=== PATIENT | male | born 1980 | race Caucasian/White ===

== ENCOUNTER → 2018-01-24 14:32 | Outpatient (CLI) | payer MEDICAID, SELFPAY ==
--- NOTE | 2018-01-24 14:36 | CT_ITS ---
CT head/brain wo con HISTORY: Left-sided head pressure ITS.REASON: PRESSURE IN HEAD ORDERING PHYSICIAN: Val Germain PATIENT AGE: 37 years COMPARISON: None TECHNIQUE: Axial images obtained without contrast. Brain and bone windows reviewed. All CT scans at the facility use one or more dose reduction, viz: automated exposure control, ma/kV adjustment per patient size (including targeted exams where dose is matched to indication, i.e. head), or iterative reconstruction technique. FINDINGS: No midline shift, mass effect, intracranial hemorrhage, hydrocephalus, or extra-axial fluid collection is evident. The calvarium has an unremarkable appearance. No mastoid effusion. No sinus air-fluid levels.. There is mild mucosal thickening of the ethmoid sinuses on the left IMPRESSION: No acute intracranial findings Mild sinus disease
== END ==
PROVIDERS: PCP Nurse Practitioner; Visit Provider Nurse Practitioner
DX: R51 Headache (principal)
CPT/HCPCS: 70450

== ENCOUNTER 2019-07-18 15:38 | Emergency (ER) | payer MEDICAID, SELFPAY ==
[2019-07-18 15:48] VITALS: BP 116/75; PULSE 76; RESP 18; TEMP 36.7; O2SAT 99; BMI 28.1
[2019-07-18 15:58] VITALS: BP 116/75; PULSE 76; RESP 18; TEMP 36.7; O2SAT 99; BMI 28.1
--- NOTE | 2019-07-18 15:59 | HMH.EDUTC ---
[facility] [place] Clinical Impression: URI (upper respiratory infection) Qualifiers: URI type: unspecified URI Qualified Code(s): J06.9 - Acute upper respiratory infection, unspecified Disposition: Home, Self-Care Condition on Discharge: Good Instructions: Cough (Alternative Therapy), Sore Throat, Acute Bronchitis, DI for Cough -- Adult, Preventing the Spread of Coronavirus Discharge Instructions Additional Instructions: *Monitor Temp, Over the counter Motrin or Tylenol as directed/as needed Tylenol every 4 hours and Motrin every 6 hours (as long as your family doctor has told you that you can take it) for fever or pain. and straight to ER if unable to lower temp less than 101.0 after medication given *Warm salt water gargles may help to soothe the throat *Throat Lozenges *Warm fluids *Sleep elevated *Humidifier/Vaporizer Take medication as prescribed Monitor fever at least twice daily for the next several days to see if you have a fever and record Follow up immediately if any worsening of symptoms Your throat swab was sent for culture. Those results are typically sent to your primary care. Be sure to follow up in 2-3 days with your family doctor/primary care physician if no improvement so they can review those result and treat if necessary. If you don?t have a primary care doctor, I recommend you get one but in the mean time, you will have to return to a walk in clinic Follow up IMMEDIATELY for new or worsening symptoms or no Noticeable improvement over the next 48-72 hours. 911 for difficulty breathing or swallowing or chest pain. Prescriptions: Mometasone Furoate [Nasonex] 2 sprays NS DAILY #1 spray.pump Transmission Status: Received by [facility] Azithromycin [Z-Demarco 250mg Tab] 250 mg PO DIRECTED #6 tab Transmission Status: Received by [facility] Referrals: Radha Amos APRN [Primary Care Provider] - Time of Disposition: 16:41 Medical Decision Making - Feliciano Inquiry Pt receiving controlled substance: No Feliciano was queried for this patient: No Vital Signs: 07/18/19 15:48 07/18/19 15:58 Temperature 98.1 F 98.1 F Temperature Source Oral Oral Pulse Rate [Radial] 76 76 Respiratory Rate 18 18 Blood Pressure [Right Arm] 116/75 116/75 Blood Pressure Mean [Right Arm] 88 88 Blood Pressure Source [Right Arm] Automatic Cuff Automatic Cuff Blood Pressure Position [Right Arm] Sitting Sitting 02 Sat by Pulse Oximetry 99 99 Oxygen Delivery Method Room Air Room Air - Lab Data Lab results reviewed: Yes: I reviewed the patient's lab results. Lab Results 07/18/19 16:34: Influenza Type A Ag Negative, Influenza Type B Ag Negative 07/18/19 16:34: Strep Scn Rapid Clinic Negative Orders (Tests/Meds): ORDERS Category Date Time Status Chest XR 2 view (NOT portable) [XR chest 2V] Stat Exams 07/18/19 16:00 Taken Strep Screen Confirmation Stat Micro 07/18/19 16:34 Received - Radiology Data #1 Image(s): Chest Image Reviewed: Yes I reviewed the patient's radiology image w/the ED provider Preliminary Findings: Normal/NAD - Reevaluation(s) Time: 16:35 Reevaluation #1: Discussed with patient about covid testing and patient declined at this time, State that he will monitor temp for the next couple of days and if he gets a temp he will return for testing Patient advised that if he starts to run a fever or worsening of cough he needs to follow up immediately and he verbalized understanding [facility] [place] - General Stated complaint: sore throat,weakness Time Seen by Provider: 07/18/19 15:59 Mode of Arrival: Ambulatory Source of Information: Patient Limitations: No Limitations Description of Symptoms (Recalled from Triage Doc. by RN): Complaint of a sore throat x 1 week that he states he brushed off on the fact that he snores. Denies chest pain but states his chest hurt while taking a deep breath and it felt more muscular. - History of Present Illness Provider Complaint: Patient states t
--- NOTE | 2019-07-18 16:00 | XR_ITS ---
PROCEDURE: XR CHEST 2V CLINICAL HISTORY: cough Chest pain with cough COMPARISON: CXR CHEST(2 VIEWS-NOT PORTABLE) from 01/13/2014 CXR1 CHEST-PORTABLE from 03/11/2014 FINDINGS: The cardiomediastinal silhouette and pulmonary vascularity are within normal limits. The lungs are clear without infiltrates, suspicious nodules, or pleural effusions. No acute bony abnormalities. IMPRESSION: No acute findings. Dictated by: Emiliano Ash MD 07/18/2019 16:46 Electronically signed by Emiliano Ash MD in [place] 07/18/2019 16:46
[2019-07-18 16:36] LABS: UTC Influenza A Antigen Negative (Negative); UTC Strep Screen (Rapid) Negative (Negative)
[2019-07-18 16:37] LABS: UTC Influenza B Antigen Negative (Negative)
[2019-07-18 18:08] VITALS: BP 116/78; PULSE 79; RESP 19; TEMP 36.6; O2SAT 100
== END 2019-07-18 16:49 | disposition home or self-care (01) ==
LOC: ER 15:44 → UTC 15:48
PROVIDERS: Emergency Provider Nurse Practitioner
DX: J06.9 Acute upper respiratory infection, unspecified (principal); F17.210 Nicotine dependence, cigarettes, uncomplicated
CPT/HCPCS: 71046; 87804; 87880; 99202

== ENCOUNTER 2020-05-10 13:16 | Emergency (ER) | payer OTHER, SELFPAY ==
[2020-05-10 13:30] VITALS: BP 128/85; PULSE 77; RESP 14; O2SAT 99; BMI 28.1
--- NOTE | 2020-05-10 14:09 | HMH.EDUTC ---
[facility] [place] Disposition Clinical Impression: Tendinopathy of left shoulder Left shoulder pain Qualifiers: Chronicity: acute Qualified Code(s): M25.512 - Pain in left shoulder Disposition: Home, Self-Care Condition on Discharge: Good Instructions: Shoulder Tendinopathy, DI for Shoulder Tendinopathy Additional Instructions: Continue the antiinflammatory medications that you are already on. Follow up with your primary care physician. GO TO THE ER FOR ANY WORSENING SYMPTOMS OR CONCERNS To Whom it May Concern: It would be reasonable to place Mr. Huitron on light duty at his job for the next week. Repetitive use of his left shoulder will make his symptoms worse. Hernandez Gasca APRN Referrals: Mikey Erazo MD [Primary Care Provider] - Zayda Martinez MD [Physician] - Forms: Work/School Release Time of Disposition: 14:23 Medical Decision Making - Medical Records Medical records reviewed: No: I reviewed the patient's medical records. - Feliciano Inquiry Pt receiving controlled substance: No Vital Signs: 05/10/20 13:30 05/10/20 14:28 Temperature 98.9 F Pulse Rate 77 Pulse Rate [Right Brachial] 77 Respiratory Rate 14 14 Blood Pressure 128/85 Blood Pressure [Right Arm] 128/85 Blood Pressure Mean [Right Arm] 99 Blood Pressure Source [Right Arm] Automatic Cuff Blood Pressure Position [Right Arm] Sitting 02 Sat by Pulse Oximetry 99 Oxygen Delivery Method Room Air [facility] [place] HPI - General Stated complaint: left shoulder pain, unknown origin Time Seen by Provider: 05/10/20 13:50 Mode of Arrival: Ambulatory Source of Information: Patient Limitations: No Limitations Description of Symptoms (Recalled from Triage Doc. by RN): PATIENT C/O PAIN AND DECREASED ROM TO LEFT SHOULDER. UNKNOWN INJURY, HOWEVER STATES HE SHOVELED SNOW ALL WEEKEND HEENT Symptoms (Recalled from RN notes): No Resp Symptoms (Recalled from RN notes): No Skin Symptoms (Recalled from RN notes): No MS Symptoms (Recalled from RN notes): Yes Functional Status (Recalled from RN notes): WNL - History of Present Illness Provider Complaint: He states that he is having left shoulder pain with movement of the shoulder since yesterday. He thinks that he has irritated his shoulder with the repetitive movements. . - Related Data Previous Rx's Medication Instructions Recorded Azithromycin [Z-Demarco 250mg Tab] 250 mg PO DIRECTED #6 tab 07/18/19 Mometasone Furoate [Nasonex] 2 sprays NS DAILY #1 spray.pump 07/18/19 Allergies Allergy/AdvReac Type Severity Reaction Status Date / Time No Known Allergies Allergy Verified 07/18/19 16:04 - Worker's Comp Is this a Worker's Comp case?: No [facility] History - Hepatitis A Screen Drug use history?: No High risk sexual behaviors?: No History of sexually transmitted infection?: No Currently employed?: No Childcare worker?: No Do you have indoor plumbing?: Yes Do you have electricity?: Yes Attestation statement:: This patient has been screened for Hepatitis A risk factors. I have reviewed the patient's past medical history: Yes Medical History: Reports:: Hepatitis (Reports dx Hep C 9yrs ago) Other Surgeries: Yes: No Previous Surgery - Social History Smoking Status: Current every day smoker Tobacco Type: cigarettes # Packs/Day (cigarettes): 1 Alcohol Intake: never Occupational Status: other Household Members: family ROS Obtained: Yes All systems reviewed & no additional complaints - Constitutional Constitutional: Denies chills, Denies fever(s) - Musculoskeletal Musculoskeletal: Reports as per HPI - Integumentary/Breasts Skin/Breast: Denies redness, Denies rash, Denies wounds Physical Exam - General General appearance: alert, in no apparent distress - Head Head exam: atraumatic, normocephalic, normal inspection - Eye Eye exam: Present: normal appearance, PERRL, EOMI - ENT ENT exam: Present: normal exam, normal oropharynx, mucous membranes moist, TM's n
[2020-05-10 14:28] VITALS: BP 128/85; PULSE 77; RESP 14; TEMP 37.2; O2SAT 99
== END 2020-05-10 14:30 | disposition home or self-care (01) ==
PROVIDERS: Emergency Provider Nurse Practitioner Family; PCP Emergency Medicine
DX: M67.912 Unspecified disorder of synovium and tendon, left shoulder (principal); B18.2 Chronic viral hepatitis C; F17.210 Nicotine dependence, cigarettes, uncomplicated
CPT/HCPCS: 99202; G0463

== ENCOUNTER 2020-07-16 14:35 | Emergency (ER) | payer OTHER, SELFPAY ==
[2020-07-16 14:43] VITALS: BP 143/86; PULSE 70; RESP 14; TEMP 37.1; O2SAT 100; BMI 29.9
--- NOTE | 2020-07-16 15:01 | HMH.EDUTC ---
[facility] [place] Clinical Impression: Viral syndrome Disposition: Home, Self-Care Condition on Discharge: Good Instructions: DI for Viral Syndrome Additional Instructions: Drink plenty of fluids. Take tylenol for pain or fever. Return if you begin to have difficulty breathing. Follow up with your regular doctor. GO TO THE ER FOR ANY WORSENING SYMPTOMS Referrals: Mikey Erazo MD [Primary Care Provider] - Forms: Work/School Release Time of Disposition: 15:08 Medical Decision Making - Medical Records Medical records reviewed: No: I reviewed the patient's medical records. - Feliciano Inquiry Pt receiving controlled substance: No Vital Signs: 07/16/20 14:43 Temperature 98.7 F Temperature Source Oral Pulse Rate [Left] 70 Respiratory Rate 14 Blood Pressure [Right Arm] 143/86 H Blood Pressure Mean [Right Arm] 105 Blood Pressure Source [Right Arm] Automatic Cuff Blood Pressure Position [Right Arm] Sitting 02 Sat by Pulse Oximetry 100 Oxygen Delivery Method Room Air Orders (Tests/Meds): ORDERS Category Date Time Status Covid-19 Nasal PCR ([facility]) Routine Lab 07/16/20 14:40 Received [facility] [place]PI - General Stated complaint: covid test Time Seen by Provider: 07/16/20 15:01 Mode of Arrival: Ambulatory Source of Information: Patient Limitations: No Limitations Description of Symptoms (Recalled from Triage Doc. by RN): pt c/o aches and fatigue. is positive for covid. HEENT Symptoms (Recalled from RN notes): No Resp Symptoms (Recalled from RN notes): No Skin Symptoms (Recalled from RN notes): No MS Symptoms (Recalled from RN notes): No Functional Status (Recalled from RN notes): na - History of Present Illness Provider Complaint: He states that for the past 2 days he has had worse fatigue than usual. His is sick right now and she may have covid-19. He denies any shortness of breath and congestion. He denies any fever/chills/body aches. - Related Data Previous Rx's Medication Instructions Recorded Azithromycin [Z-Demarco 250mg Tab] 250 mg PO DIRECTED #6 tab 07/18/19 Mometasone Furoate [Nasonex] 2 sprays NS DAILY #1 spray.pump 07/18/19 Allergies Allergy/AdvReac Type Severity Reaction Status Date / Time No Known Allergies Allergy Verified 07/16/20 14:46 - Worker's Comp Is this a Worker's Comp case?: No [facility] History - Hepatitis A Screen Drug use history?: No High risk sexual behaviors?: No History of sexually transmitted infection?: No Currently employed?: No Childcare worker?: No Do you have indoor plumbing?: Yes Do you have electricity?: Yes Attestation statement:: This patient has been screened for Hepatitis A risk factors. I have reviewed the patient's past medical history: Yes Medical History: Reports:: Hepatitis (Reports dx Hep C 9yrs ago) Other Surgeries: Yes: No Previous Surgery - Social History Smoking Status: Current every day smoker Tobacco Type: cigarettes # Packs/Day (cigarettes): 1 Alcohol Intake: never Occupational Status: other Household Members: family ROS Obtained: Yes All systems reviewed & no additional complaints - Constitutional Constitutional: Reports system reviewed and no additional complaints, except as docu - Eyes Eyes: Reports system reviewed and no additional complaints, except as docu - ENT Ears, Nose, Mouth, and Throat: Reports system reviewed and no additional complaints, except as docu - Cardiovascular Cardiovascular: Reports system reviewed and no additional complaints, except as docu - Respiratory Respiratory: Reports system reviewed and no additional complaints, except as docu Physical Exam - General General appearance: alert, in no apparent distress - Head Head exam: atraumatic, normocephalic, normal inspection - Eye Eye exam: Present: normal appearance, PERRL, EOMI - ENT ENT exam: Present: normal exam, normal oropharynx, mucous membranes moist, TM's normal bilaterally, normal external e
[2020-07-16 15:34] VITALS: BP 135/85; PULSE 70; RESP 14; TEMP 37.1
== END 2020-07-16 15:34 | disposition home or self-care (01) ==
PROVIDERS: Emergency Provider Nurse Practitioner Family; PCP Emergency Medicine
DX: Z20.822 Contact with and (suspected) exposure to COVID-19 (principal); B34.9 Viral infection, unspecified; B18.2 Chronic viral hepatitis C; F17.210 Nicotine dependence, cigarettes, uncomplicated
CPT/HCPCS: 99202; G0463; U0003

== ENCOUNTER 2020-08-26 14:40 | Emergency (ER) | payer OTHER, SELFPAY ==
[2020-08-26 14:44] VITALS: BP 132/80; PULSE 78; RESP 17; TEMP 36.8; O2SAT 98; BMI 29.9
--- NOTE | 2020-08-26 14:52 | HMH.EDUTC ---
[facility] [place] Disposition Clinical Impression: Viral syndrome Acute bronchitis Qualifiers: Bronchitis organism: unspecified organism Qualified Code(s): J20.9 - Acute bronchitis, unspecified Disposition: Home, Self-Care Condition on Discharge: Good Instructions: DI for Acute Bronchitis, Preventing the Spread of Coronavirus Discharge Instructions Additional Instructions: Drink plenty of fluids. Take tylenol or ibuprofen for pain or fever. Take the medications as directed. Follow up with your regular doctor. GO TO THE ER FOR ANY WORSENING SYMPTOMS Prescriptions: Brompheniramine/Pseudoephed/Dm [Bromfed Dm Cough Syrup] 5 ml PO Q6HP PRN #240 syrup PRN Reason: Cough Transmission Status: Received by [facility] Azithromycin [Z-Demarco 250mg Tab*] 250 mg PO UD DOSE PK #6 tab Transmission Status: Received by [facility] Referrals: Mikey Erazo MD [Primary Care Provider] - Time of Disposition: 15:13 Medical Decision Making - Medical Records Medical records reviewed: No: I reviewed the patient's medical records. - Feliciano Inquiry Pt receiving controlled substance: No Vital Signs: 08/26/20 14:44 08/26/20 14:59 Temperature 98.3 F 98.3 F Temperature Source Oral Pulse Rate 78 Pulse Rate [Left] 78 Respiratory Rate 17 17 Blood Pressure 132/80 Blood Pressure [Right Arm] 132/80 Blood Pressure Mean [Right Arm] 97 02 Sat by Pulse Oximetry 98 - Lab Data Lab Results 08/26/20 14:59: Strep Scn Rapid Clinic Negative Orders (Tests/Meds): ORDERS Category Date Time Status Strep Screen Confirmation Stat Micro 08/26/20 14:59 Received [facility] [place] HPI - General Stated complaint: fatigue,cough Time Seen by Provider: 08/26/20 14:52 - History of Present Illness Provider Complaint: He states that he has had a cough and he has felt bad for the past 3 days. He has had chilling also, but no documented fever. - Related Data Previous Rx's Medication Instructions Recorded Azithromycin [Z-Demarco 250mg Tab] 250 mg PO DIRECTED #6 tab 07/18/19 Mometasone Furoate [Nasonex] 2 sprays NS DAILY #1 spray.pump 07/18/19 Azithromycin [Z-Demarco 250mg Tab*] 250 mg PO UD DOSE PK #6 tab 08/26/20 Brompheniramine/Pseudoephed/Dm 5 ml PO Q6HP PRN #240 syrup 08/26/20 [Bromfed Dm Cough Syrup] Allergies Allergy/AdvReac Type Severity Reaction Status Date / Time No Known Allergies Allergy Verified 08/26/20 14:58 [facility] History - Hepatitis A Screen Attestation statement:: This patient has been screened for Hepatitis A risk factors. I have reviewed the patient's past medical history: Yes Medical History: Reports:: Hepatitis (Reports dx Hep C 9yrs ago) Other Surgeries: Yes: No Previous Surgery - Social History Smoking Status: Current every day smoker Tobacco Type: cigarettes # Packs/Day (cigarettes): 1 Alcohol Intake: never Occupational Status: other Household Members: family ROS Obtained: Yes All systems reviewed & no additional complaints - Constitutional Constitutional: Reports system reviewed and no additional complaints, except as docu - Eyes Eyes: Reports system reviewed and no additional complaints, except as docu - ENT Ears, Nose, Mouth, and Throat: Reports system reviewed and no additional complaints, except as docu - Cardiovascular Cardiovascular: Reports system reviewed and no additional complaints, except as docu - Respiratory Respiratory: Reports system reviewed and no additional complaints, except as docu - Gastrointestinal Gastrointestingal: Reports: system reviewed and no additional complaints, except as docu Physical Exam - General General appearance: alert, in no apparent distress - Head Head exam: atraumatic, normocephalic, normal inspection - Eye Eye exam: Present: normal appearance, PERRL, EOMI - ENT ENT exam: Present: normal exam, normal oropharynx, mucous membranes moist, TM's normal bilaterally, normal external ear exam - Neck Neck exam:
[2020-08-26 14:59] VITALS: BP 132/80; PULSE 78; RESP 17; TEMP 36.8; O2SAT 98
[2020-08-26 15:10] LABS: UTC Strep Screen (Rapid) Negative (Negative)
--- NOTE | 2020-08-26 20:22 | PC.NURSE ---
Pt contacted and informed of his negative Covid test by this nurse.
== END 2020-08-26 15:18 | disposition home or self-care (01) ==
PROVIDERS: Emergency Provider Nurse Practitioner Family; PCP Emergency Medicine
DX: J20.9 Acute bronchitis, unspecified (principal); B34.9 Viral infection, unspecified; Z20.822 Contact with and (suspected) exposure to COVID-19
CPT/HCPCS: 87880; 99202; G0463; U0003

== ENCOUNTER 2020-11-10 10:45 | Emergency (ER) | payer OTHER, SELFPAY ==
[2020-11-10 13:02] VITALS: BP 0/0; PULSE 0; RESP 0; TEMP -17.7; TEMP 0
== END 2020-11-10 13:03 | disposition left against medical advice (07) ==
LOC: UTC 10:47
PROVIDERS: Emergency Provider Nurse Practitioner; PCP Emergency Medicine
DX: Z53.21 Procedure and treatment not carried out due to patient leaving prior to being seen by health care provider (principal)

== ENCOUNTER 2021-01-03 12:50 | Emergency (ER) | payer OTHER, SELFPAY ==
[2021-01-03 13:32] VITALS: BP 151/89; PULSE 65; RESP 16; TEMP 36.7; O2SAT 99; BMI 28.7
--- NOTE | 2021-01-03 13:38 | HMH.EDUTC ---
[facility] [place] Clinical Impression: Dental abscess, Jaw pain Disposition: Home, Self-Care Condition on Discharge: Good Instructions: Tooth Abscess, DI for Dental Pain Additional Instructions: Make sure you follow up with a dentist. Take the medications as directed. GO TO THE ER FOR WORSENING SYMPTOMS. INFECTION IN YOUR MOUTH THIS CLOSE TO YOUR BRAIN CAN BE VERY DANGEROUS. Prescriptions: Ibuprofen [Ibuprofen 800mg Tablet] 800 mg PO Q8HP PRN #30 tab PRN Reason: Moderate Pain Transmission Status: Received by [facility] Amoxicillin/Potassium Clav [Augmentin 875-125 Tablet] 1 tab PO Q12H 10 Days #20 tab Transmission Status: Received by [facility] Referrals: Mikey Erazo MD [Primary Care Provider] - Time of Disposition: 14:01 Medical Decision Making - Medical Records Medical records reviewed: No: I reviewed the patient's medical records. - Feliciano Inquiry Pt receiving controlled substance: No Vital Signs: 01/03/21 13:32 01/03/21 14:05 Temperature 98.1 F 98.3 F Temperature Source Oral Oral Pulse Rate 60 Pulse Rate [Right] 65 Respiratory Rate 16 16 Blood Pressure 152/74 H Blood Pressure [Right Arm] 151/89 H Blood Pressure Mean [Right Arm] 109 Blood Pressure Source Automatic Cuff Blood Pressure Source [Right Arm] Automatic Cuff Blood Pressure Position Sitting Blood Pressure Position [Right Arm] Sitting 02 Sat by Pulse Oximetry 99 Oxygen Delivery Method Room Air Room Air [facility] [place] HPI - General Stated complaint: oral infection Time Seen by Provider: 01/03/21 13:38 - History of Present Illness Provider Complaint: He states that he has had 2 teeth that are absessed. One is in his top right jaw and one is in his bottom right jaw. He denies any fever or chills. His dentist retired and he has had trouble finding another one that takes his insurance. - Related Data Previous Rx's Medication Instructions Recorded Azithromycin [Z-Demarco 250mg Tab] 250 mg PO DIRECTED #6 tab 07/18/19 Mometasone Furoate [Nasonex] 2 sprays NS DAILY #1 spray.pump 07/18/19 Azithromycin [Z-Demarco 250mg Tab*] 250 mg PO UD DOSE PK #6 tab 08/26/20 Brompheniramine/Pseudoephed/Dm 5 ml PO Q6HP PRN #240 syrup 08/26/20 [Bromfed Dm Cough Syrup] Amoxicillin/Potassium Clav 1 tab PO Q12H 10 Days #20 tab 01/03/21 [Augmentin 875-125 Tablet] Ibuprofen [Ibuprofen 800mg 800 mg PO Q8HP PRN #30 tab 01/03/21 Tablet] Allergies Allergy/AdvReac Type Severity Reaction Status Date / Time No Known Allergies Allergy Verified 08/26/20 14:58 [facility] History - Hepatitis A Screen Attestation statement:: This patient has been screened for Hepatitis A risk factors. I have reviewed the patient's past medical history: Yes Medical History: Reports:: Hepatitis (Reports dx Hep C 9yrs ago) Other Surgeries: Yes: No Previous Surgery - Social History Smoking Status: Never smoker Tobacco Type: cigarettes # Packs/Day (cigarettes): 1 Alcohol Intake: never Occupational Status: other Household Members: family ROS Obtained: Yes All systems reviewed & no additional complaints - Constitutional Constitutional: Denies chills, Denies fever(s) - Eyes Eyes: Denies eye discharge - ENT Ears, Nose, Mouth, and Throat: Reports as per HPI, Denies dizziness, Denies otalgia, Denies sore throat - Cardiovascular Cardiovascular: Denies chest pain - Respiratory Respiratory: Denies chest congestion, Denies cough, Denies dyspnea, Denies stridor, Denies wheezing - Gastrointestinal Gastrointestingal: Denies: abdominal pain, diarrhea, nausea, vomiting - Musculoskeletal Musculoskeletal: Denies joint pain, Denies back pain, Denies neck pain - Integumentary/Breasts Skin/Breast: Denies rash Physical Exam - General General appearance: alert, in no apparent distress - Head Head exam: atraumatic, normocephalic, normal inspection - Eye Eye exam: Present: normal appearance, PERRL, EOMI - ENT ENT ex
[2021-01-03 14:05] VITALS: BP 152/74; PULSE 60; RESP 16; TEMP 36.8; O2SAT 98
== END 2021-01-03 14:06 | disposition home or self-care (01) ==
PROVIDERS: Emergency Provider Nurse Practitioner Family; PCP Emergency Medicine
DX: K04.7 Periapical abscess without sinus (principal); F17.210 Nicotine dependence, cigarettes, uncomplicated
CPT/HCPCS: 99202; G0463

== ENCOUNTER 2021-01-13 17:25 | Emergency (ER) | payer OTHER, SELFPAY ==
[2021-01-13 19:28] VITALS: BP 0/0; PULSE 0; RESP 0; TEMP -17.7; TEMP 0; O2SAT 0
== END 2021-01-13 19:29 | disposition left against medical advice (07) ==
LOC: UTC 17:29
PROVIDERS: Emergency Provider Nurse Practitioner; PCP Emergency Medicine
DX: Z53.21 Procedure and treatment not carried out due to patient leaving prior to being seen by health care provider (principal)

== ENCOUNTER 2021-01-16 10:03 | Emergency (ER) | payer OTHER, SELFPAY ==
[2021-01-16 10:10] VITALS: BP 133/88; PULSE 68; RESP 20; TEMP 37.2; O2SAT 98; BMI 28.7
--- NOTE | 2021-01-16 10:57 | HMH.EDUTC ---
[facility] [place] Disposition Clinical Impression: Dental abscess Disposition: Home, Self-Care Condition on Discharge: Good Instructions: Tooth Abscess, Clindamycin Additional Instructions: Take antibiotics as prescribed Follow up with Dentist as scheduled Use Dental balls as advised in the [facility] Return if needed Over the counter Motrin and/or Tylenol as directed on package for pain and fever Prescriptions: clindamycin HCL [Clindamycin HCl] 300 mg PO TID 7 Days #21 cap Transmission Status: Pending to [facility] Referrals: Mikey Erazo MD [Primary Care Provider] - As needed Time of Disposition: 11:03 Medical Decision Making - Feliciano Inquiry Pt receiving controlled substance: No Feliciano was queried for this patient: No Vital Signs: 01/16/21 10:10 Temperature 98.9 F Temperature Source Oral Pulse Rate [Right Brachial] 68 Respiratory Rate 20 Blood Pressure [Right Arm] 133/88 Blood Pressure Mean [Right Arm] 103 Blood Pressure Source [Right Arm] Automatic Cuff Blood Pressure Position [Right Arm] Sitting 02 Sat by Pulse Oximetry 98 Oxygen Delivery Method Room Air [facility] HPI - General Stated complaint: dental pain Time Seen by Provider: 01/16/21 10:57 Mode of Arrival: Ambulatory Source of Information: Patient Limitations: No Limitations Description of Symptoms (Recalled from Triage Doc. by RN): PATIENT C/O LEFT SIDE TOOTH INFECTION FOR A COUPLE OF WEEKS. WAS RECENTLY ON ANTIBIOTICS BUT FEELS LIKE THE INFECTION IS STILL THERE. HAS A DENTIST APPOINTMENT ON SUNDAY HEENT Symptoms (Recalled from RN notes): Yes Resp Symptoms (Recalled from RN notes): No Skin Symptoms (Recalled from RN notes): No MS Symptoms (Recalled from RN notes): No Functional Status (Recalled from RN notes): WNL - History of Present Illness Provider Complaint: Patient states he has several bad and infected teeth on the left side of his mough States that he was seen in the [facility] a little over 2 weeks ago and was given antibiotics States that he took them and it got better but then this morning he woke up and had swelling again in his left jaw area like the infection had returned so he came in to get it checked States that he has appointment on Sunday with Dentist - Related Data Home Medications Medication Instructions Recorded Confirmed Esomeprazole Magnesium [Nexium] 40 mg PO DAILY 01/16/21 01/16/21 Previous Rx's Medication Instructions Recorded clindamycin HCL [Clindamycin HCl] 300 mg PO TID 7 Days #21 cap 01/16/21 Allergies Allergy/AdvReac Type Severity Reaction Status Date / Time No Known Allergies Allergy Verified 08/26/20 14:58 - Worker's Comp Is this a Worker's Comp case?: No [facility] History - Hepatitis A Screen Drug use history?: No High risk sexual behaviors?: No History of sexually transmitted infection?: No Currently employed?: No Childcare worker?: No Do you have indoor plumbing?: Yes Do you have electricity?: Yes Attestation statement:: This patient has been screened for Hepatitis A risk factors. I have reviewed the patient's past medical history: Yes Medical History: Reports:: Hepatitis (Reports dx Hep C 9yrs ago) Other Surgeries: Yes: No Previous Surgery - Social History Smoking Status: Never smoker Tobacco Type: cigarettes # Packs/Day (cigarettes): 1 Alcohol Intake: never Occupational Status: other Household Members: family ROS Obtained: Yes All systems reviewed & no additional complaints, Yes Systems reviewed as appropriate & no additional complaints - Constitutional Constitutional: Reports system reviewed and no additional complaints, except as docu, Denies body ache, Denies chills, Denies fever(s) - ENT Ears, Nose, Mouth, and Throat: Reports system reviewed and no additional complaints, except as docu, Reports dental pain - Cardiovascular Cardiovascular: Reports system reviewed and no additional complaints, except as docu - Respiratory Respiratory: Reports system reviewed and no add
[2021-01-16 11:10] VITALS: BP 133/88; PULSE 68; RESP 20; TEMP 37.2; O2SAT 98
== END 2021-01-16 11:14 | disposition home or self-care (01) ==
PROVIDERS: Emergency Provider Nurse Practitioner; PCP Emergency Medicine
DX: K04.7 Periapical abscess without sinus (principal)
CPT/HCPCS: 99202; G0463

== ENCOUNTER 2021-01-22 13:14 | Emergency (ER) | payer OTHER, SELFPAY ==
[2021-01-22 14:12] VITALS: BP 157/99; PULSE 73; RESP 16; TEMP 36.8; O2SAT 96; BMI 28.7
[2021-01-22 14:36] VITALS: BP 157/99; PULSE 73; RESP 18; TEMP 36.8
--- NOTE | 2021-01-22 14:42 | HMH.EDUTC ---
[facility] [place] Disposition Clinical Impression: Dental abscess, Pain, dental, Jaw pain Disposition: Home, Self-Care Condition on Discharge: Good Instructions: Tooth Abscess, DI for Tooth Abscess Additional Instructions: Make sure you get in with a dentist danny. Keep the appointment that you have scheduled now at least. Take the medications as directed. Take the probiotics that we prescribed to try to protect you from having more GI issues from too many antibiotics. If your insurance won't pay for them, then ask the pharmacist to recommend one that you could buy over the counter. Eat yogurt twice per day for the next few weeks also. Drink plenty of fluids. Take tylenol or ibuprofne for pain or fever. Follow up with your regular doctor. GO TO THE ER FOR ANY WORSENING SYMPTOMS Prescriptions: clindamycin HCL [Cleocin HCl] 300 mg PO Q8H 10 Days #30 cap Transmission Status: Received by [facility] Lactobacillus 3/Fos/Pantethine [Probiotic & Acidophilus Cap] 1 each PO BID 30 Days #60 cap Transmission Status: Received by [facility] Referrals: Mikey Erazo MD [Primary Care Provider] - Time of Disposition: 14:52 Medical Decision Making - Medical Records Medical records reviewed: No: I reviewed the patient's medical records. - Feliciano Inquiry Pt receiving controlled substance: No Vital Signs: 01/22/21 14:12 01/22/21 14:36 Temperature 98.2 F 98.2 F Temperature Source Oral Pulse Rate 73 Pulse Rate [Left] 73 Respiratory Rate 16 18 Blood Pressure 157/99 H Blood Pressure [Right Arm] 157/99 H Blood Pressure Mean [Right Arm] 118 02 Sat by Pulse Oximetry 96 Orders (Tests/Meds): ED MEDICATIONS Discontinued Medications Generic Name Dose Route Start Last Admin Trade Name Freq PRN Reason Stop Dose Admin Benzocaine/Butamben/Tetracaine HCl 10 gm 01/22/21 14:49 01/22/21 15:04 Tetracaine/Benzocaine/Butamben 56 Gm [place] TP 02/21/21 14:48 10 gm NEEDED PRN Administration dental pain Ceftriaxone Sodium 1 gm 01/22/21 14:38 01/22/21 14:46 Ceftriaxone 1gm Vial IM 01/22/21 14:39 1 gm ONCE ONE Administration Lidocaine HCl 0 ml 01/22/21 14:38 01/22/21 14:46 Lidocaine 1% 5ml Pf Vial IM 01/22/21 14:39 2.5 ml ONCE ONE Administration Lidocaine HCl 15 ml 01/22/21 14:49 01/22/21 15:03 Lidocaine 2% Viscous Andreina 15ml Udc PO 01/22/21 14:50 15 ml ONCE ONE Administration [facility] HPI - General Stated complaint: oral infection Time Seen by Provider: 01/22/21 14:42 Mode of Arrival: Ambulatory Source of Information: Patient Limitations: No Limitations Description of Symptoms (Recalled from Triage Doc. by RN): pt was here two weeks ago and tx for an abcess tooth in the L lower jaw with amoxicillin. a few days later he came back and was tx with clindamycin which he finished yesterday. pt has tried to get in with numerous dentists and is having problems finding one that will take his insurance. he now has an appointment HEENT Symptoms (Recalled from RN notes): Yes (abcessed tooth in the lower L jaw) Resp Symptoms (Recalled from RN notes): No Skin Symptoms (Recalled from RN notes): No MS Symptoms (Recalled from RN notes): No Functional Status (Recalled from RN notes): na - History of Present Illness Provider Complaint: He is back with dental pain. He has finished 2 rounds of antibiotics. He has not been successful at being seen by a dentist because he is having trouble finding someone that will take his insurance. He went to an appointment earlier this week, but then they discovered they did not take his insurance. He states that his dental pain and swelling was better while he was on the clindamycin, but as soon as it was completed he started having the pain and swelling again. He denies any fever or chills. - Related Data Home Medications Medication Instructions Recorded Confirmed Esomeprazole Magnesium [Nexium] 40 mg PO DAILY 01/16/21
== END 2021-01-22 15:07 | disposition home or self-care (01) ==
PROVIDERS: Emergency Provider Nurse Practitioner Family; PCP Emergency Medicine
DX: K04.7 Periapical abscess without sinus (principal); B18.2 Chronic viral hepatitis C
CPT/HCPCS: 96372; 99202; G0463

== ENCOUNTER → 2021-03-21 15:31 | Outpatient (CLI) | payer OTHER, SELFPAY | PROVIDERS: Visit Provider Nurse Practitioner | DX: U07.1 COVID-19 (principal) | CPT/HCPCS: C9803; U0003; U0005 ==

== ENCOUNTER → 2021-04-07 08:05 | Outpatient (CLI) | payer OTHER, SELFPAY | PROVIDERS: Visit Provider Nurse Practitioner | DX: Z20.822 Contact with and (suspected) exposure to COVID-19 (principal) | CPT/HCPCS: C9803; U0003; U0005 ==

== ENCOUNTER 2021-06-27 12:35 | Emergency (ER) | payer OTHER, SELFPAY ==
--- NOTE | 2021-06-27 12:38 | XR_ITS ---
FINAL REPORT CLINICAL HISTORY: FALL FINDINGS: 3 views of the right foot were obtained. There is no acute fracture or dislocation. The joint spaces are intact. The soft tissues are unremarkable. IMPRESSION: No acute process. Reviewed, Interpreted and Dictated by Colin Thomas MD Transcribed by Sawyer Borges Authenticated by Colin Thomas MD on 06/27/2021 02:41:36 PM [facility]
[2021-06-27 13:40] VITALS: BP 141/83; PULSE 64; RESP 18; TEMP 37.1; O2SAT 98; BMI 28.7
--- NOTE | 2021-06-27 14:20 | HMH.EDUTC ---
[facility] [place] Clinical Impression: Right foot pain Contusion of right heel Qualifiers: Encounter type: initial encounter Qualified Code(s): S90.31XA - Contusion of right foot, initial encounter Disposition: Home, Self-Care Condition on Discharge: Good Additional Instructions: Rest the extremity, apply ice for 15 minutes as tolerated three or four times per day, Wear the maria wrap for compression, Elevate the extremity as tolerated while you are resting. Take ibuprofen for pain. I sent in a prescription to your pharmacy. Follow up with Dr. Mata (orthopedics). Sometimes there can be fractures that don't show up well on the first set of x-rays. So, you should follow up if you continue to have symptoms. I put in a referral but you need to call his office and schedule an appointment. Follow up with your regular doctor. GO TO THE ER FOR ANY WORSENING SYMPTOMS Prescriptions: Ibuprofen [Ibuprofen 800mg Tablet] 800 mg PO Q8HP PRN #30 tab PRN Reason: Moderate Pain Transmission Status: Received by [facility] Referrals: Mikey Erazo MD [Primary Care Provider] - Nehemias Mata MD [Staff Physician] - Forms: Work/School Release Time of Disposition: 15:18 Medical Decision Making - Medical Records Medical records reviewed: No: I reviewed the patient's medical records. - Feliciano Inquiry Pt receiving controlled substance: No Vital Signs: 06/27/21 13:40 06/27/21 14:52 Temperature 98.7 F 98.7 F Temperature Source Oral Pulse Rate 64 Pulse Rate [Right Brachial] 64 Respiratory Rate 18 18 Blood Pressure 141/83 H Blood Pressure [Right Arm] 141/83 H Blood Pressure Mean [Right Arm] 102 Blood Pressure Source [Right Arm] Automatic Cuff Blood Pressure Position [Right Arm] Sitting 02 Sat by Pulse Oximetry 98 Oxygen Delivery Method Room Air - Radiology Data #1 Image(s): Foot/Toes Image Reviewed: Yes I reviewed the patient's radiology image, Yes I have reviewed radiologist's interpretation Preliminary Findings: Normal/NAD, No Fracture Seen FINAL REPORT CLINICAL HISTORY: FALL FINDINGS: 3 views of the right foot were obtained. There is no acute fracture or dislocation. The joint spaces are intact. The soft tissues are unremarkable. IMPRESSION: No acute process. Reviewed, Interpreted and Dictated by Colin Thomas MD Transcribed by Sawyer Borges Authenticated by Colin Thomas MD on 06/27/2021 02:41:36 PM [facility] HPI - General Stated complaint: AO 06/27 fall rt foot pain Time Seen by Provider: 06/27/21 13:40 Mode of Arrival: Ambulatory Source of Information: Patient Limitations: No Limitations Description of Symptoms (Recalled from Triage Doc. by RN): PATIENT STATES HE FELL OFF OF LADDER TODAY AND INJURED RIGHT HEEL HEENT Symptoms (Recalled from RN notes): No Resp Symptoms (Recalled from RN notes): No Skin Symptoms (Recalled from RN notes): No MS Symptoms (Recalled from RN notes): Yes Functional Status (Recalled from RN notes): WNL - History of Present Illness Provider Complaint: He states that earlier today he was stepping down off a ladder when he fell and came down on his right heel. He is having right heel pain. The pain is worse with walking and bearing weight. - Related Data Home Medications Medication Instructions Recorded Confirmed Esomeprazole Magnesium [Nexium] 40 mg PO DAILY 01/16/21 06/27/21 Previous Rx's Medication Instructions Recorded Ibuprofen [Ibuprofen 800mg 800 mg PO Q8HP PRN #30 tab 06/27/21 Tablet] Allergies Allergy/AdvReac Type Severity Reaction Status Date / Time No Known Allergies Allergy Verified 08/26/20 14:58 - Worker's Comp Is this a Worker's Comp case?: No [facility] History - Hepatitis A Screen Drug use history?: No High risk sexual behaviors?: No History of sexually transmitted infection?: No Currently employed?: No Childcare worker?: No Do you have indoor plumbing?: Yes
[2021-06-27 14:52] VITALS: BP 141/83; PULSE 64; RESP 18; TEMP 37.1; O2SAT 98
== END 2021-06-27 15:25 | disposition home or self-care (01) ==
PROVIDERS: Emergency Provider Nurse Practitioner Family; PCP Emergency Medicine
DX: S90.31XA Contusion of right foot, initial encounter (principal); W11.XXXA Fall on and from ladder, initial encounter; Y92.89 Other specified places as the place of occurrence of the external cause
CPT/HCPCS: 73630; 99212; G0463

== ENCOUNTER 2022-07-26 14:26 | Emergency (ER) | payer OTHER, SELFPAY ==
[2022-07-26 14:26] VITALS: BP 129/74; PULSE 77; RESP 17; TEMP 36.9; O2SAT 99; BMI 26.2
--- NOTE | 2022-07-26 15:04 | HMH.EDGENADL ---
Discharge Plan Disposition Patient Disposition: Home, Self-Care Chief Complaint: Wound/Laceration Prescriptions Prescriptions: No Action esomeprazole magnesium 40 MG capsule,delayed release(DR/EC) 40 mg PO DAILY Referrals Follow up/Referrals: Mikey Erazo MD [Primary Care Provider] - See instructions Activity Restrictions/Add. Instructions Additional Instructions/Restrictions: Return for bleeding vomiting headache numbness or tingling arms or legs or any other concerns within the next 8 hours Otherwise follow-up with your primary care physician or return to emergency room in 1 week for staple removal Clinical Impressions Clinical Impression: Complex laceration of scalp Instructions Patient Instructions: DI for Laceration Repair Discharge ED Provider: Moy Barrios General Adult HPI General Chief complaint: Wound/Laceration Stated complaint: AO [id number] gash on top of head Time Seen by Provider: 07/26/22 14:30 Mode of Arrival: Ambulatory Source of Information: Patient Limitations: No Limitations Description of Symptoms (Recalled from ER Triage Doc. by RN): 41 M presents from his job site after having a ladder fall down onto his head. He was carrying the ladder and it came down hitting the top of his head causing lacerations in 2 different spots on the right portion of his scalp. Denies LOC, loss of vision, or blurry vision. After it happened he was able to finish cleaning up the site and drive here. Approximately 1 hour [employer]. History of Present Illness HPI narrative: 41-year-old male was at the job site when he had a letter fall down his head he says it was right above his head he was carrying a ladder and then hit down and cut his scalp in 2 areas. Denies loss of consciousness loss of vision numbness weakness or tingling arms or legs. Denies nausea or vomiting. No other injuries. No neck pain. No blood thinners. Related Data Home Medications Medication Instructions Recorded Confirmed esomeprazole magnesium 40 mg 40 mg PO DAILY Acid reflux 01/16/21 07/26/22 capsule,delayed release Allergies Allergy/AdvReac Type Severity Reaction Status Date / Time No Known Allergies Allergy Verified 08/26/20 14:58 [facility] Disclaimer: The information contained in this section may have been updated after the patient was seen, as this information can be updated by other users. Social History Smoking Status: Never smoker second hand exposure: No alcohol intake: never current occupational status: other Travel in the last 8 weeks: None household members: family current occupational exposures/hazards: No ROS Obtained: Yes All systems reviewed & no additional complaints except as documented Constitutional Constitutional: Denies fatigue and Denies headache(s) Eyes Eyes: Denies dry eyes ENT Ears, Nose, Mouth, and Throat: Denies headache(s) Cardiovascular Cardiovascular: Denies diaphoresis and Denies dyspnea Respiratory Respiratory: Denies dyspnea Gastrointestinal Gastrointestingal: Denies constipation Genitourinary Male Genitourinary: Denies flank pain Musculoskeletal Musculoskeletal: Denies joint stiffness Integumentary/Breasts Skin/Breast: Denies redness and Denies rash Neurologic Neurologic: Denies headache(s) Endocrine Endocrine: Denies fatigue Hematologic/Lymphatic Henatologic/Lymphatic: Denies easy bleeding Allergic/Immunologic Allergic/Immunologic: Denies urticaria Physical Exam General General appearance: alert and in no apparent distress Head Head exam: other (4 cm laceration scalp +2 cm laceration scalp not deep clean wounds) Eye Eye exam: Present PERRL and EOMI ENT ENT exam: Present normal exam and normal oropharynx Neck Neck exam: Present normal inspection Chest Chest inspection: Present symmetric chest wall rise Respiratory Respiratory exam: Present normal lung sounds bilaterally; Absent respiratory distress Cardiovascular Cardiovascular exam: Presen
[2022-07-26 15:11] VITALS: BP 132/75; PULSE 67; RESP 17; TEMP 36.8; O2SAT 99
== END 2022-07-26 15:17 | disposition home or self-care (01) ==
PROVIDERS: Emergency Provider Emergency Medicine; PCP Emergency Medicine
DX: S01.01XA Laceration without foreign body of scalp, initial encounter (principal); W20.8XXA Other cause of strike by thrown, projected or falling object, initial encounter; Y99.0 Civilian activity done for income or pay; Z23 Encounter for immunization
CPT/HCPCS: 12004; 90715; 96372; 99283

== ENCOUNTER 2022-08-04 06:33 | Emergency (ER) | payer OTHER, SELFPAY ==
[2022-08-04 06:36] VITALS: BP 130/65; PULSE 71; RESP 17; TEMP 36.7; O2SAT 98
--- NOTE | 2022-08-04 07:12 | PC.NURSE ---
Back Facer is speaking with BLESSING.
[2022-08-04 07:48] VITALS: BP 127/72; PULSE 88; RESP 16; TEMP 36.6; O2SAT 100
--- NOTE | 2022-08-04 07:49 | PC.NURSE ---
8 tara removed utilizing staple remover/hemostats. Pt tolerated well. Wound edges approximated, slight superficial bleeding noted d/t (1) staple embedded. Neosporin applied.
== END 2022-08-04 07:50 | disposition home or self-care (01) ==
PROVIDERS: Emergency Provider Emergency Medicine; PCP Emergency Medicine
DX: Z48.02 Encounter for removal of sutures (principal)
CPT/HCPCS: 99281

== ENCOUNTER 2022-08-27 09:14 | Emergency (ER) | payer OTHER, SELFPAY ==
[2022-08-27 09:20] VITALS: BP 110/98; PULSE 60; RESP 18; TEMP 36.5; O2SAT 98; BMI 23.6
[2022-08-27 09:29] VITALS: BP 110/98; PULSE 60; RESP 18; TEMP 36.5; O2SAT 98
[2022-08-27 09:31] LABS: Apearance,Urine Clear (Clear); Color,Urine Yellow (Yellow); Specific Gravity, Urine 1.025 (1.005-1.030)
[2022-08-27 09:32] LABS: Bilirubin,Urine Negative (Negative); Blood, Urine Negative (Negative); Glucose,Urine (UA) Negative (Negative); Ketones,Urine Negative (Negative); Protein,Urine Negative (Negative); UTC Leukocyte Esterase,Urine Negative (Negative); UTC Nitrate,Urine Negative (Negative); Urobilinogen,Urine 0.2 EU/dl (0.2)
--- NOTE | 2022-08-27 09:34 | EXP.UTC ---
Discharge Plan Disposition Patient Disposition: Home, Self-Care Condition: Good Prescriptions Prescriptions: New doxycycline monohydrate 100 mg capsule 100 mg PO BID 14 Days Qty: 28 0RF No Action esomeprazole magnesium 40 MG capsule,delayed release(DR/EC) 40 mg PO DAILY Referrals Follow up/Referrals: Mikey Erazo MD [Primary Care Provider] - See instructions Activity Restrictions/Add. Instructions Additional Instructions/Restrictions: practice safe sex no sexual contact until both are finished with antibiotics and are not having symptoms follow up for lab results Clinical Impressions Clinical Impression: STI (sexually transmitted infection) Instructions Patient Instructions: Facts About Sexually Transmitted Infections, How to Detect and Treat STDs Discharge ED Provider: Elsa ([facility])Yandel [facility] [place] HPI General Stated complaint: Trouble urinating Mode of Arrival: Ambulatory Source of Information: Patient Limitations: No Limitations Time Seen by Provider: 08/27/22 09:34 Description of Symptoms (Recalled from Triage Doc. by RN): PATIENT C/O BURNING WITH URINATION X 2 DAYS HEENT Symptoms (Recalled from RN notes): No Resp Symptoms (Recalled from RN notes): No Skin Symptoms (Recalled from RN notes): No MS Symptoms (Recalled from RN notes): No Functional Status (Recalled from RN notes): WNL History of Present Illness Provider Complaint: 41 yr old male presents for burning with urination for 2 days. pt states his partner has just been dx with sti he is not sure if it was chlamydia or ureaplasma but was given doxycycline Related Data Home Medications Medication Instructions Recorded Confirmed esomeprazole magnesium 40 mg 40 mg PO DAILY Acid reflux 01/16/21 08/27/22 capsule,delayed release Previous Rx's Medication Instructions Recorded doxycycline monohydrate 100 mg 100 mg PO BID 14 days #28 caps 08/27/22 capsule Allergies Allergy/AdvReac Type Severity Reaction Status Date / Time No Known Allergies Allergy Verified 08/26/20 14:58 Worker's Comp Is this a Worker's Comp case?: No [facility] Disclaimer: The information contained in this section may have been updated after the patient was seen, as this information can be updated by other users. 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) Smoking Status: Never smoker second hand exposure: No alcohol intake: never current occupational status: other Travel in the last 8 weeks: None household members: family current occupational exposures/hazards: No ROS Obtained: Yes All systems reviewed & no additional complaints except as documented Constitutional Constitutional: Reports system reviewed and no additional complaints, except as documented and Reports as per HPI Eyes Eyes: Reports system reviewed and no additional complaints, except as documented ENT Ears, Nose, Mouth, and Throat: Reports system reviewed and no additional complaints, except as documented Cardiovascular Cardiovascular: Reports system reviewed and no additional complaints, except as documented Respiratory Respiratory: Reports system reviewed and no additional complaints, except as documented Genitourinary Male Genitourinary: Reports system reviewed and no additional complaints, except as documented, Reports as per HPI, Reports difficulty urinating, Reports urinary urgency and Reports other (burning) Neurologic Neurologic: Reports system reviewed and no additional complaints, except as documented Endocrine Endocrine: Reports system reviewed and no additional complaints, except as documented Hematologic/Lymphatic Henatologic/Lymphatic: Reports system reviewed and no additional complaints, except as documented Physical Exam General General appearance: alert and in no apparent distress Head Head exam: atraumatic and normocephalic Eye Eye exam: Present normal appearance and PERRL ENT ENT exam: Present normal exam, nor
[2022-08-30 01:12] LABS: Neisseria gonorrhoeae, NAA Negative (Negative)
== END 2022-08-27 09:35 | disposition home or self-care (01) ==
PROVIDERS: Emergency Provider Nurse Practitioner Family; PCP Emergency Medicine
DX: A64 Unspecified sexually transmitted disease (principal); R30.0 Dysuria
CPT/HCPCS: 81003; 87086; 87491; 87591; 99212; 99214; G0463

== ENCOUNTER 2022-09-14 08:53 | Emergency (ER) | payer OTHER, SELFPAY ==
[2022-09-14 09:05] VITALS: BP 123/74; PULSE 63; RESP 18; TEMP 37.1; O2SAT 99; BMI 26.2
[2022-09-14 09:12] LABS: Apearance,Urine Clear (Clear); Bilirubin,Urine Negative (Negative); Blood, Urine Negative (Negative); Color,Urine Dark Yellow (Yellow); Glucose,Urine (UA) Negative (Negative); Ketones,Urine Negative (Negative); Protein,Urine Negative (Negative); UTC Leukocyte Esterase,Urine Negative (Negative); UTC Nitrate,Urine Negative (Negative); Urobilinogen,Urine 0.2 EU/dl (0.2)
--- NOTE | 2022-09-14 09:28 | EXP.UTC ---
Discharge Plan Disposition Patient Disposition: Home, Self-Care Condition: Good Prescriptions Prescriptions: No Action esomeprazole magnesium 40 MG capsule,delayed release(DR/EC) 40 mg PO DAILYP PRN (Reason: Acid Reflux) Referrals Follow up/Referrals: Mikey Erazo MD [Primary Care Provider] - See instructions Matt Pichardo MD [Staff Physician] - See instructions Vlad Hess MD [Referring] - See instructions Activity Restrictions/Add. Instructions Additional Instructions/Restrictions: Make sure to check for your results in the next 3-5 days Follow up with your Family Doctor for further testing and evaluation Follow up with Urology if symptoms persist for further testing and evaluation Straight to ER if any life threatening symptoms Clinical Impressions Clinical Impression: Urinary symptom or sign Instructions Patient Instructions: Chlamydia, DI for Gonorrhea Discharge ED Provider: Radha Amos [facility] [place] HPI General Stated complaint: Trouble urinating Mode of Arrival: Ambulatory Source of Information: Patient Limitations: No Limitations Time Seen by Provider: 09/14/22 09:28 Description of Symptoms (Recalled from Triage Doc. by RN): PATIENT C/O DISCOMFORT WHEN URINATING. HE WAS SEEN EARLIER THIS MONTH FOR THE SAME THING BUT HAS NOT GOTTEN BETTER HEENT Symptoms (Recalled from RN notes): No Resp Symptoms (Recalled from RN notes): No Skin Symptoms (Recalled from RN notes): No MS Symptoms (Recalled from RN notes): No Functional Status (Recalled from RN notes): WNL History of Present Illness Provider Complaint: Patient states that he was seen earlier this month due to STI exposure and was tested and started on Doxy States that his symptoms did improve and his lady finished all her medication and he noticed after they had sex again the warming feeling came back in his private area and he was worried he may have got infected again so he came back in Related Data Home Medications Medication Instructions Recorded Confirmed esomeprazole magnesium 40 mg 40 mg PO DAILYP PRN Acid Reflux 01/16/21 09/14/22 capsule,delayed release Allergies Allergy/AdvReac Type Severity Reaction Status Date / Time No Known Allergies Allergy Verified 08/26/20 14:58 Worker's Comp Is this a Worker's Comp case?: No [facility] Disclaimer: The information contained in this section may have been updated after the patient was seen, as this information can be updated by other users. Social History , [employer]) Smoking Status: Never smoker second hand exposure: No alcohol intake: never current occupational status: other Travel in the last 8 weeks: None household members: family current occupational exposures/hazards: No ROS Obtained: Yes All systems reviewed & no additional complaints except as documented and Yes Systems reviewed as appropriate & no additional complaints except as documented Constitutional Constitutional: Reports system reviewed and no additional complaints, except as documented, Denies body ache, Denies chills and Denies fever(s) ENT Ears, Nose, Mouth, and Throat: Reports system reviewed and no additional complaints, except as documented and Reports as per HPI Cardiovascular Cardiovascular: Reports system reviewed and no additional complaints, except as documented and Reports as per HPI Respiratory Respiratory: Reports system reviewed and no additional complaints, except as documented and Reports as per HPI Gastrointestinal Gastrointestingal: Reports system reviewed and no additional complaints, except as documented and as per HPI; Denies abdominal pain, diarrhea, nausea or vomiting Genitourinary Male Genitourinary: Reports system reviewed and no additional complaints, except as documented, Reports as per HPI, Denies penile ulceration, Denies flank pain, Denies genital lesions, Denies genital pain, Denies hematospermia, Denies penile discharge,
[2022-09-14 09:34] VITALS: BP 123/74; PULSE 63; RESP 18; TEMP 37.1; O2SAT 99
[2022-09-15 22:40] LABS: Neisseria gonorrhoeae, NAA Negative (Negative)
== END 2022-09-14 09:36 | disposition home or self-care (01) ==
PROVIDERS: Emergency Provider Nurse Practitioner; PCP Emergency Medicine
DX: R39.9 Unspecified symptoms and signs involving the genitourinary system (principal)
CPT/HCPCS: 81003; 87086; 87491; 87591; 99212; 99213; G0463

== ENCOUNTER 2023-01-10 08:29 | Emergency (ER) | payer OTHER, SELFPAY ==
[2023-01-10 08:30] VITALS: BP 122/78; PULSE 68; RESP 18; TEMP 36.9; O2SAT 97; BMI 25.0
--- NOTE | 2023-01-10 08:58 | EXP.UTC ---
Discharge Plan Disposition Patient Disposition: Home, Self-Care Condition: Fair Prescriptions Prescriptions: No Action esomeprazole magnesium 40 MG capsule,delayed release(DR/EC) 40 mg PO DAILYP PRN (Reason: Acid Reflux) fluconazole 150 mg tablet 150 mg PO ONCE levofloxacin 500 mg tablet 500 mg PO DAILY sertraline 50 mg tablet 50 mg PO DAILY Referrals Follow up/Referrals: Mikey Erazo MD [Primary Care Provider] - See instructions Tariq Bowles MD [Staff Physician] - See instructions (call to schedule followup) Activity Restrictions/Add. Instructions Additional Instructions/Restrictions: Please follow-up with your primary care provider. Please return to the emergency department if you develop any new or worsening symptoms or become concerned for your health. Recommend continuing the Levaquin as prescribed by urology. Recommend following up with cardiology for consideration of Holter monitor placement. Clinical Impressions Clinical Impression: Bilateral lower abdominal pain, Dizziness Stand Alone Forms Stand Alone Forms: Work/School Release Instructions Patient Instructions: DI for Ambulatory Cardiac Monitoring, DI for Acute Abdominal Pain Discharge ED Provider: Ivan Gifford [facility] General Chief complaint: Abdominal Pain Stated complaint: LOWER ABDOMINAL PAIN, DIZZINESS Time Seen by Provider: 01/10/23 08:58 Related Data Home Medications Medication Instructions Recorded Confirmed esomeprazole magnesium 40 mg 40 mg PO DAILYP PRN Acid Reflux 01/16/21 01/10/23 capsule,delayed release fluconazole 150 mg tablet 150 mg PO ONCE 01/10/23 01/10/23 levofloxacin 500 mg tablet 500 mg PO DAILY 01/10/23 01/10/23 sertraline 50 mg tablet 50 mg PO DAILY 01/10/23 01/10/23 Allergies Allergy/AdvReac Type Severity Reaction Status Date / Time No Known Allergies Allergy Verified 01/10/23 09:01 [facility] Disclaimer: The information contained in this section may have been updated after the patient was seen, as this information can be updated by other users. Social History Smoking Status: Current every day smoker tobacco type: cigarettes packs per day: 1 second hand exposure: No alcohol intake: never current occupational status: other Travel in the last 8 weeks: None household members: family current occupational exposures/hazards: No ROS Obtained: Yes All systems reviewed & no additional complaints except as documented Constitutional Constitutional: Denies chills, Denies fever(s) and Reports poor appetite ENT Ears, Nose, Mouth, and Throat: Denies dizziness and Denies sore throat Cardiovascular Cardiovascular: Denies dyspnea Respiratory Respiratory: Denies chest congestion, Denies cough and Denies dyspnea Musculoskeletal Musculoskeletal: Denies arthralgias Integumentary/Breasts Skin/Breast: Denies rash Neurologic Neurologic: Denies dizziness Physical Exam General General appearance: alert and in no apparent distress Head Head exam: atraumatic and normocephalic Eye Eye exam: Present normal appearance, PERRL and EOMI ENT ENT exam: Present normal exam, normal oropharynx, mucous membranes moist, TM's normal bilaterally and normal external ear exam Neck Neck exam: Present normal inspection, full ROM and trachea midline; Absent tenderness, meningismus or lymphadenopathy Chest Chest inspection: Present normal inspection and symmetric chest wall rise; Absent tenderness, rash or abscess Respiratory Respiratory exam: Present normal lung sounds bilaterally; Absent respiratory distress, wheezes or stridor Cardiovascular Cardiovascular exam: Present regular rate and normal rhythm; Absent irregular rhythm, systolic murmur, diastolic murmur or JVD Abdominal Exam Abdominal exam: Present soft and normal bowel sounds; Absent distention, tenderness, guarding, rebound, rigidity, psoas sign, obturator sign, heel tap sig
[2023-01-10 09:06] LABS: Apearance,Urine Clear (Clear); Bilirubin,Urine Negative (Negative); Blood, Urine Negative (Negative); Color,Urine Yellow (Yellow); Glucose,Urine (UA) Negative (Negative); Ketones,Urine Negative (Negative); Protein,Urine Negative (Negative)
[2023-01-10 09:07] LABS: UTC Leukocyte Esterase,Urine Negative (Negative); UTC Nitrate,Urine Negative (Negative); Urobilinogen,Urine 0.2 EU/dl (0.2)
[2023-01-10 09:30] VITALS: BP 109/73; PULSE 65; RESP 20; O2SAT 100
[2023-01-10 09:37] VITALS: BP 127/76; PULSE 60; RESP 16; TEMP 36.6; O2SAT 100; BMI 25.0
--- NOTE | 2023-01-10 09:37 | PC.NURSE ---
Dr. Gifford at for pt eval
--- NOTE | 2023-01-10 09:55 | CT_ITS ---
FINAL REPORT TECHNIQUE: Postcontrast axial images through the abdomen and pelvis were performed. This study was performed with techniques to keep radiation doses as low as reasonably achievable, (ALARA). Individualized dose reduction techniques using automated exposure control or adjustment of mA and/or kV according to the patient's size were employed. CLINICAL HISTORY: reported chronic prostatitis, new RLQ/LLQ pain FINDINGS: Abdomen: The lung bases are clear. The liver is normal in size and attenuation. The spleen is unremarkable. The adrenals are normal. The pancreas is unremarkable. The kidneys enhance appropriately. The aorta is normal in caliber. No free fluid or adenopathy is identified. No findings for mechanical bowel obstruction are identified. Pelvis: The appendix is normal. The urinary bladder is unremarkable. No free fluid, free air, abscess or adenopathy is identified. IMPRESSION: No acute inflammatory process. Reviewed, Interpreted and Dictated by Rl Uribe III, MD Transcribed by Spring Miranda Authenticated and [facility]
[2023-01-10 10:00] VITALS: BP 116/81; PULSE 60; RESP 20; O2SAT 100
--- NOTE | 2023-01-10 10:04 | ECG_ITS ---
APPROVED REPORT Exam: Resting ECG HR:60 bpm ECG Measurements Heart Rate 60 AXES QRSd 102 QRS 81 QT 403 T 76 QTc 403 Conclusion SUPRAVENTRICULAR RHYTHM ABNORMAL RHYTHM ECG UNCONFIRMED REPORT Electronically signed by : Hector Valle MD 01/11/2023 21:28:21
--- NOTE | 2023-01-10 10:12 | PC.NURSE ---
pt taken to ct on 1st floor due to the one in ER being used
--- NOTE | 2023-01-10 10:15 | PC.NURSE ---
pt gave a urine sample at [facility], per Dasha @ [facility] this specimen was sent to lab after their dipstick analysis was completed. Let Elena in Lab know that would like this urine sample run in lab for UA w micro and possible culture.
[2023-01-10 10:17] LABS: Basophils % 0.3 % (0.1-2.0); Eosinophils # 0.2 K/mm3 (0.0-0.4); Eosinophils % 2.5 % (0.1-12.0); Hematocrit 43.4 % (42.0-52.0); Lymphocytes # 1.6 K/mm3 (0.7-4.5); Lymphocytes % 23.4 % (10-50); Mean Corpuscular HGB Conc 36.8 g/dL (31.8-35.4); Mean Corpuscular Hemoglobin 33.7 pg (27.0-31.2); Mean Corpuscular Volume 91.7 fl (80-94); Mean Platelet Volume 8.3 fl (7.4-10.4); Monocytes # 0.3 K/mm3 (0.1-1.0); Monocytes % 4.8 % (1.7-9.3); Neutrophils # 4.8 K/mm3 (1.8-7.8); Neutrophils % 68.9 % (37.0-80.0); Platelet Count 182 K/mm3 (142-424); Red Blood Count 4.74 M/mm3 (4.60-6.20); Red Cell Distribution Width 12.8 % (11.5-17.5)
[2023-01-10 10:18] LABS: Microscopic, Urine URINE MICROSCOPIC (MICROSCOPIC)
[2023-01-10 10:22] LABS: Appearance,Urine CLEAR (Clear); Bilirubin,Urine Negative (Negative); Blood, Urine Negative (Negative); Color,Urine YELLOW (Yellow); Glucose,Urine (UA) Negative (Negative); Ketones,Urine Negative (Negative); Leukocyte Esterase,Urine Negative (Negative); Nitrate,Urine Negative (Negative); Protein,Urine Negative (Negative); Urobilinogen,Urine 0.2 EU/dl (0.2)
[2023-01-10 10:26] LABS: Chloride 104 mmol/L (98-107); Potassium 4.3 mmoL/L (3.5-5.1); Sodium 139 mmol/L (136-145)
[2023-01-10 10:28] LABS: Blood Urea Nitrogen 20 mg/dl (9-20); Creatinine Clearance Estimated 156 mL/min (50-200); Estimated Glomerular Filt Rate 107 ml/min (>60); GFR (African American) 129 ML/MIN (>60)
[2023-01-10 10:29] LABS: Alanine Aminotransferase 21 U/L (12-78); Albumin Level 4.9 g/dl (3.5-5.0); Albumin/Globulin Ratio 1.6 (1.1-1.8); Alkaline Phosphatase 81 U/L (38-126); Anion Gap 8.3 mEq/L (5-15); Aspartate Amino Transferase 26 U/L (17-59); Bilirubin,Total 0.8 mg/dl (0.2-1.3); Calcium 8.7 mg/dl (8.4-10.2); Carbon Dioxide 31 mmol/L (22.0-30.0); Glucose 102 mg/dl (74-100); Total Protein,Serum 7.9 g/dl (6.3-8.2)
[2023-01-10 10:43] LABS: Troponin I < 0.01 ng/ml (0.00-0.034)
[2023-01-10 11:00] LABS: Thyroid Stimulating Hormone 1.31 uIU/mL (0.465-4.68)
[2023-01-10 13:12] VITALS: BP 130/87; PULSE 59; RESP 18; TEMP 36.6; O2SAT 98
--- NOTE | 2023-01-18 06:06 | HMH.EDGENADL ---
Discharge Plan Disposition Patient Disposition: Home, Self-Care Condition: Fair Prescriptions Prescriptions: No Action esomeprazole magnesium 40 MG capsule,delayed release(DR/EC) 40 mg PO DAILYP PRN (Reason: Acid Reflux) fluconazole 150 mg tablet 150 mg PO ONCE levofloxacin 500 mg tablet 500 mg PO DAILY sertraline 50 mg tablet 50 mg PO DAILY Referrals Follow up/Referrals: Mikey Erazo MD [Primary Care Provider] - See instructions Tariq Bowles MD [Staff Physician] - See instructions (call to schedule followup) Activity Restrictions/Add. Instructions Additional Instructions/Restrictions: Please follow-up with your primary care provider. Please return to the emergency department if you develop any new or worsening symptoms or become concerned for your health. Recommend continuing the Levaquin as prescribed by urology. Recommend following up with cardiology for consideration of Holter monitor placement. Clinical Impressions Clinical Impression: Bilateral lower abdominal pain, Dizziness Stand Alone Forms Stand Alone Forms: Work/School Release Instructions Patient Instructions: DI for Ambulatory Cardiac Monitoring, DI for Acute Abdominal Pain Discharge ED Provider: Ivan Gifford Adult HPI General Chief complaint: Abdominal Pain Stated complaint: LOWER ABDOMINAL PAIN, DIZZINESS Time Seen by Provider: 01/10/23 08:58 Mode of Arrival: Ambulatory Source of Information: Patient Limitations: No Limitations Description of Symptoms (Recalled from ER Triage Doc. by RN): 42 yo M transferred from [facility] for further evaluation. pt reports abdominal pain ongoing for 3 days. yesterday pt reports he began to ahve lightheadedness when standing. when laying down pt reports that he has a pulsitile headache , but only when laying down. History of Present Illness HPI narrative: 42-year-old male with a variety of complaints presents from urgent care for further evaluation. He reports that he is being evaluated by urology for prostatic issues and has been diagnosed with chronic prostatitis. Patient also reports intermittent palpitations and dizziness. Also reports intermittent headache. He is currently prescribed Levaquin for chronic prostatitis but is not actively taking it. Reports that he is already completed a multiweek course but is supposed to begin another. He had onset of worsened lower abdominal pain over the last couple of days and so presents for further evaluation. He reports that he has had innumerable analysis including STD testing that were negative in the past. Denies any significant nausea or vomiting. Related Data Home Medications Medication Instructions Recorded Confirmed esomeprazole magnesium 40 mg 40 mg PO DAILYP PRN Acid Reflux 01/16/21 01/10/23 capsule,delayed release fluconazole 150 mg tablet 150 mg PO ONCE 01/10/23 01/10/23 levofloxacin 500 mg tablet 500 mg PO DAILY 01/10/23 01/10/23 sertraline 50 mg tablet 50 mg PO DAILY 01/10/23 01/10/23 Allergies Allergy/AdvReac Type Severity Reaction Status Date / Time No Known Allergies Allergy Verified 01/10/23 09:01 [facility] Disclaimer: The information contained in this section may have been updated after the patient was seen, as this information can be updated by other users. Social History Smoking Status: Current every day smoker tobacco type: cigarettes packs per day: 1 second hand exposure: No alcohol intake: never current occupational status: other Travel in the last 8 weeks: None household members: family current occupational exposures/hazards: No ROS Obtained: Yes All systems reviewed & no additional complaints except as documented Physical Exam General General appearance: alert and in no apparent distress Head Head exam: atraumatic and normocephalic Eye Eye exam: Present normal appearance, PERRL and EOMI ENT ENT exam: Presen
== END 2023-01-10 13:37 | disposition home or self-care (01) ==
LOC: UTC 09:21 → ER 09:23
PROVIDERS: Nurse Practitioner Family; Emergency Provider Emergency Medicine; PCP Emergency Medicine
DX: R10.30 Lower abdominal pain, unspecified (principal); R42 Dizziness and giddiness; N41.1 Chronic prostatitis; F17.210 Nicotine dependence, cigarettes, uncomplicated
CPT/HCPCS: 74177; 80053; 81001; 81003; 84443; 84484; 85025; 93005; 93225; 99284; Q9967

== ENCOUNTER 2023-07-19 13:10 | Outpatient (POV) | payer SELFPAY ==
--- NOTE | 2023-07-19 13:26 | EXP.PAIN.OV ---
HPI Data of Consult Patient: new to practice Consult date: 07/19/23 Requesting Physician: Marga Yap APRN Primary Care Provider: Tariq Priest DO Consult Narrative Reason for consult: Low back pain, pelvic pain History of present illness: Mr. Huitron is a 42 year old male who presents today as a new patient. He is a referral from Tariq Priest's office. Today he rates his pain a 3 out of 10 however states his pain will go up much higher as he does more activity. Patient states that he has had chronic low back pain from an injury back about 20 years ago. Patient does state that the symptoms are constant and a dull ache. He states that really what is bothering him more is the newer symptoms that occurred within the last 6 months unrelated to any trauma or injury that is more in his pelvic area. Patient states he has had multiple tests drained and a colonoscopy run with no acute findings. He states that when they could not find any specific reason that they did diagnose him with chronic pelvic pain. Patient states this is constant and does affect his ability to perform activities of daily living such as cooking and cleaning. 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 Patient states he has tried [id number] Tylenol and ibuprofen along with heat and ice and topicals with minimal relief. Patient denies any prior back surgery or injection history. 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 He is not interested in any oral medications including pain medicines. He is looking to see about possible injection therapy. Patient states that he does not have insurance so he will be a taylor pay option.He is prescribed triazolam from an outside provider. His Feliciano has been reviewed and is appropriate. CC: Marga Yap APRN [facility] Disclaimer: The information contained in this section may have been updated after the patient was seen, as this information can be updated by other users. Medical History (Updated 07/19/23 @ 14:27 by Marga Yap APRN) H/O sigmoidoscopy Chronic male pelvic pain Surgical History (Updated 06/28/23 @ 11:28 by Elo Goodman CMA) History of colonoscopy Social History (Updated 06/28/23 @ 11:29 by Elo Goodman CMA) Smoking Status: Former smoker tobacco type: cigarettes packs per day: 1 how long ago did patient quit smokin years second hand exposure: No alcohol intake: former year quit: 2012 substance use type: former substance user, marijuana, crack/cocaine, heroin, opiates, painkillers, IV drugs and methamphetamine current occupational status: employed and other Travel in the last 8 weeks: None household members: family current occupational exposures/hazards: No Review of Systems Review of Systems Review of systems:: pertinent systems reviewed and negative unless documented below Review of systems (narrative): Review of Systems: General: No recent weight changes, no fever, no sleep disturbances Respiratory: No cough, no shortness of air, no recurring pulmonary infections Cardiovascular/peripheral vascular: No chest pain, no palpitations, no edema, no shortness of breath Gastrointestinal: No new onset incontinence, normal bowel movements reported Genitourinary: No new onset incontinence Musculoskeletal: Low back pain, buttocks pain, groin pain, pelvic pain Psychiatric: [Normal mood/affect] Neurological: [Denies weakness in extremities], [denies balance issues] Meds Home Medications and Allergies Home Medications Medication Instructions Recorded Confirmed Type esomeprazole magnesium 40 mg 40 mg PO DAILYP PRN Acid Reflux 01/16/21 06/28/23 History capsule,delayed release sertraline 50 mg tablet 50 mg PO DAILY 01/10/23 06/28/23 History ibuprofen 800 mg tablet 800 mg PO PRN 06/28/23 06/28/23 History mesalamine 1,000 mg rectal AK 06/28/23 06/28/23 History suppository New Prescriptions to Start Prescriptions: Allergies Allergy/AdvReac Type Severity Reaction Status Date / Time No Known Allergies Allergy Verified 06/28/23 11:20 Objective Narrative: Physical Exam: General: Alert and oriented x3, no acute distress, pleasant and cooperative Lungs: Respirations even and unlabored, symmetrical chest expansion Eyes: PERRL Musculoskeletal: Flexion and extension of lumbar [spine] somewhat guarded secondary to pain Neurological: Speech clear, no gross sensory deficit Additional findings Additional findings: MRI lumbar spine without contrast 03/02/2020 Findings: Multiplanar MR imaging of the lumbar spine was performed without contrast on the sagittal T2 weighted images disc degeneration is seen at multiple levels. The vertebral alignment is normal. No evidence of fracture. No bony mass identified. Conus has an unremarkable appearance. No significant significant canal stenosis or neuroforaminal narrowing is identified. L1-L2 through L3-L4 no significant canal stenosis or neuroforaminal narrowing. L4-L5: Annular bulge is present with facet arthropathy. There is posterior midline annular tear and central disc protrusion with mildly indents the thecal sac. Mild bilateral neuroforaminal narrowing. L5-S1: Annular bulge is present. There is small central disc protrusion. There is no significant canal stenosis or neuroforaminal narrowing. Note is made of mild spurring of the SI joints Assessment and Plan *Assessment and plan (1) Lower back pain: Status: Acute Qualifiers: Chronicity: chronic Back pain laterality: unspecified Sciatica presence: unspecified whether sciatica present Qualified Code(s): M54.50 - Low back pain, unspecified; G89.29 - Other chronic pain Category: Medical Code(s): M54.50 - Low back pain, unspecified (2) Pelvic pain syndrome: Status: Acute Category: Medical Code(s): R10.2 - Pelvic and perineal pain (3) Buttock pain: Status: Acute Category: Medical Code(s): M79.18 - Myalgia, other site Plan Patient is experiencing significant pain throughout his low back with radiating symptoms to his buttocks area and groin along with his pelvic region. I have discussed with the patient that he may benefit from several options such as a lumbar epidural, caudal epidural or a pudendal nerve block. Risk and benefits were discussed with the patient regarding these options. Patient states that he would like to proceed forward with a lumbar epidural since he does have the chronic low back symptoms and see if it does also help with his groin and pelvic pain. We will schedule the patient for an LESI L4-L5 under fluoroscopy. Patient did have questions regarding the cost of this injection and I have counseled him that I am unaware of details that he would have to contact [facility]'s billing department for more specifics or the financial services. Patient has been instructed to contact the clinic with any concerns before the next appointment. Dr. Rea has reviewed this note and agrees with this plan of care. This note was dictated using voice recognition software and make contain errors or omissions.
[2023-07-19 14:00] VITALS: BP 134/84; PULSE 61; RESP 18; O2SAT 97; BMI 25.0
== END 2023-07-19 23:59 | disposition home or self-care (01) ==
LOC: SC.PAIN 13:10
PROVIDERS: PCP Internal Medicine; Visit Provider Nurse Practitioner Family
DX: M54.50 Low back pain, unspecified (principal); G89.29 Other chronic pain; R10.2 Pelvic and perineal pain; M79.18 Myalgia, other site
CPT/HCPCS: 99202; G0463

== ENCOUNTER 2023-08-07 11:39 | Day surgery (SDC) | payer SELFPAY ==
[2023-08-07 11:52] VITALS: BP 116/67; PULSE 60; RESP 18; TEMP 36.8; O2SAT 100; BMI 26.2
[2023-08-07] MEDS: methylPREDNISolone ACETATE 80MG/ML VIAL 80 MG (11:58)
[2023-08-07 11:59] VITALS: BP 125/71; PULSE 71; RESP 18; O2SAT 97
--- NOTE | 2023-08-07 12:00 | EXP.PAIN.PRO ---
Procedure Date: 08/07/23 Time: 11:55 Anesthesiologist:: Antwan Marmolejo CRNA Complications:: None Pre-procedure Diagnosis:: Degenerative disc lumbar spine multilevels. Lumbar radiculopathy. Post-procedure Diagnosis:: Same. Indications for Procedure:: Patient is a pleasant 42-year-old male that comes our clinic today for lumbar epidural steroid injection at the L4-5 level. Patient reports low back pain as well as bilateral hip and leg radicular symptoms. He rates his pain 4/10. Procedure Details:: Procedure: Lumbar epidural steroid injection under fluoroscopy Informed consent was obtained and the risks and benefits of the procedure were explained to the patient. The patient was taken to the procedure room and noninvasive monitors placed, including noninvasive blood pressure cuff and pulse oximeter. The back was viewed using C-arm Fluoroscopy and prepped using Chloraprep as a cleansing solution and the L4-L5 interspace was palpated. Skin and subcutaneous tissues were anesthetized using lidocaine 1.5% and a 25-gauge needle. After this, an 18-gauge Touhy epidural needle was placed into the L4-L5 interspace and advanced using fluoroscopic guidance and loss of resistance to air until the epidural space was encountered. After confirmation of needle placement in the epidural space, with dye, a solution containing normal saline, 3 mL and Depo-Medrol 80 mg were incrementally injected into the lumbar epidural space. The patient tolerated the procedure well with no complications. The patient was observed in the Pain Clinic and then discharged home neurologically intact. Plan and Disposition:: Patient was discharged without incident.
[2023-08-07 12:04] VITALS: BP 125/71; PULSE 71; RESP 18; O2SAT 97
[2023-08-07 12:06] VITALS: BP 120/68; PULSE 62; RESP 18; O2SAT 98
== END 2023-08-07 12:07 | disposition home or self-care (01) ==
PROVIDERS: PCP Internal Medicine; Visit Provider Nurse Anesthetist, Certified Registered
DX: M51.16 Intervertebral disc disorders with radiculopathy, lumbar region (principal)
CPT/HCPCS: 62323; J1010

== ENCOUNTER 2023-11-01 10:40 | Outpatient (CLI) | payer SELFPAY ==
[2023-11-07 11:52] LABS: H. pylori Breath Test NEGATIVE
== END 2023-11-01 23:59 | disposition home or self-care (01) ==
LOC: LAB 10:40
PROVIDERS: PCP Internal Medicine; Visit Provider Nurse Practitioner Family
DX: R14.2 Eructation (principal); R10.9 Unspecified abdominal pain
CPT/HCPCS: 83013